=== PATIENT | female | born 1965 | race Caucasian/White ===

== ENCOUNTER → 2022-08-23 | Outpatient (CLI) | payer BC, OTHER ==
[2022-08-23 13:13] VITALS: BP 124/74; PULSE 82; RESP 17; TEMP 97.9
--- NOTE | 2022-08-23 13:55 | P.GSHP ---
History of Present Illness H&P Date: 08/23/22 Chief Complaint: lump right breast/ right breast stage I invasive ductal cancer 2016 Shira is a 57-year-old white female who is seen in consultation for Dr. Stearns regarding a painful nodule in the right breast. Of significance is the fact that she underwent a right breast lumpectomy and radiation therapy in 2016. She had a T1 cN0 M0 stage I ER/OH positive HER-2/carol negative right-sided breast cancer diagnosed in [id number]. She completed adjuvant radiation therapy to the right breast in 2517. The patient was started on arrimadex which she did not tolerate and she is currently on Aromasin which was changed to Femora which she stoped after 5 years. Her last bilateral mammogram was approximately 1 year ago. She did have a right-sided mammogram performed on June 2022 which revealed architectural distortion this was felt to be category 0 incomplete and an ultrasound of the right breast was performed on 1029. This revealed probably simple cyst in the area of palpable abnormality. This was felt to be probably benign BIRADS 3 and repeat ultrasound in 6 months was recommended. She additionally had a left breast ultrasound performed on 12121010. This revealed a 5 x 2 mm soft tissue nodule at 12:00. This was felt to be probably benign and annual screening was recommended. The patient did not bring her films. She had a Pet scan on 02-02-21 which was negative. The patient felt a lump in her right breast lumpectomy site in the beginning of June. It is increasing in size. It is tender. She is not complaining of any other lumps masses or nodules of concern in either breast. The patient thinks a "biofiller" was left at the lumpectomy site. The patient feels at this time does not feel like the biofilm or. She is not complaining of any recent trauma or infection in her breast. She is not complaining of any skin changes or nipple discharge. She has not had any other surgery on her breast. Patient had BRCA testing done and this was negative. Caffiene: 1 cup/day nicotine: none chocolate: occasional BCP: 10 years 39 to 49 for uterine fiborids Family History: aunt maternal: uterine cancer paternal aunt: breast cancer Hormonal History: menarche: 13 M1, breast fed: yes, age at first : 29 menopause: hysterectomy and removed both ovaries; about 53 no cancer done for fibroids hormones: none BCP: as above Surgical History: right breast lumpectomy torn meniscus Total abdominal hysterectomy Medical History: neuropathy (seen at [facility], ? eitology) asthma Social History: smoke: none alcohol: monthly wine drugs: none - Constitutional Constitutional: Denies chills, Denies fever - EENT Eyes: bilateral blurred vision, denies pain Ears: deny: decreased hearing, tinnitus Ears, nose, mouth and throat: Denies headache, Denies sore throat - Breasts Breasts: bilateral: as per HPI - Cardiovascular Cardiovascular: Denies chest pain, Denies shortness of breath - Respiratory Comment: asthma Respiratory: Denies cough, Denies 7 - Gastrointestinal Comment: reflux - Genitourinary (Female) Comment: UTI this year Genitourinary: Denies dysuria, Denies hematuria - Menstruation Menstruation: Reports post hysterectomy - Musculoskeletal Musculoskeletal: Reports myalgias - Integumentary Integumentary: Reports pruritus - Neurological Neurological: Reports as per HPI - Psychiatric Psychiatric: Reports anxiety, Denies depression - Endocrine Endocrine: Denies fatigue, Denies weight change - Hematologic/Lymphatic Comment: none - Allergic/Immunologic Allergic/Immunologic: Reports seasonal allergies Past Medical History Past Medical History: Asthma, Cancer, GERD/Reflux Additional Past Medical History / Comment(s): BREAST CA 2017, History of Any Multi-Drug Resistant Organisms: None Reported Past Surgical History: Section, Hysterectomy, Orthopedic Surgery Additional Past Surgical History / Comment(s): LEFT HAND TWICE, RIGHT HAND, LEFT KNEE, HYSTERECTOMY 2018 Past Anesthesia/Blood Transfusion Reactions: No Reported Reaction Additional Past Anesthesia/Blood Transfusion Reaction / Comment(s): PT WAKES UP IN PAIN Past Psychological History: Depression Smoking Status: Never smoker Past Alcohol Use History: Occasional Past Drug Use History: None Reported Medications and Allergies Home Medications Medication Instructions Recorded Confirmed Type Albuterol Inhaler [Ventolin Hfa 90 mcg INHALATION DIRECTED PRN 08/23/22 08/23/22 History Inhaler] DULoxetine HCL [Cymbalta] 20 mg PO DAILY 08/23/22 08/23/22 History Gabapentin 600 mg PO DAILY 08/23/22 08/23/22 History Mometasone/Formoterol [Dulera 200 200 mcg INHALATION DIRECTED PRN 08/23/22 08/23/22 History Mcg-5 Mcg Inhaler] Montelukast [Singulair] 10 mg PO DAILY 08/23/22 08/23/22 History Omeprazole [PriLOSEC] 20 mg PO DAILY 08/23/22 08/23/22 History Allergies Allergy/AdvReac Type Severity Reaction Status Date / Time codeine Allergy Nausea & Unverified 08/23/22 13:03 Vomiting Surgical - Exam Vital Signs Temp Pulse Resp BP Pulse Ox 97.9 F 82 17 124/74 100 08/23/22 13:07 08/23/22 13:07 08/23/22 13:07 08/23/22 13:07 08/23/22 13:07 BMI: 30.9 - General no distress - Eyes normal ocular movement - Neck trachea midline - Respiratory normal respiratory effort, clear to auscultation - Cardiovascular Rhythm: regular Heart Sounds: normal: S1, S2 - Abdomen Abdomen: soft, non tender, no guarding, no rigid, no rebound - Integumentary normal turgor - Neurologic no disoriented, no combative - Musculoskeletal normal gait, normal posture - Psychiatric oriented to time, oriented to person, oriented to place, speech is normal, memory intact Breast Exam: BRA: 44D inspection: well healed scar right breast bilateral grade 2 ptosis Palpation: Right breast: Multi positional exam fibrocystic changes, at the lumpectomy site there is a palpable fullness which I believe represents the biozorb which has not completely dissolved at this time Right axilla: No adenopathy of concern left breast: Multiple positional exam fibrocystic changes or dominant masses or nodules of concern left axilla: no dominant masses or nodules of concern Results Mammogram and ultrasound reports of the right breast from [id number] for the right mammogram, 1030 122 right ultrasound reviewed and recommendation is repeat right breast ultrasound in 6 months Ultrasound of the left breast 1213 gastric 22 reviewed felt to be benign BIRADS 2 but no recent left breast mammogram report is available Pathology is taken from patient oncology no and this was a T1 cc and 0 M0 ER/OH positive HER-2/carol negative stage IA invasive ductal right breast cancer Assessment and Plan Assessment: Impression: Tender nodularity right breast at lumpectomy site Mammogram and ultrasound films are not available to me at this time although reports are reviewed with the exception of the left breast mammogram report which was not available Pathology report not available Plan: Suspect that the tender nodularity in the right breast is related to a BioSorb placement which has not completely resorbed Obtained pathology report Obtain operative report Obtain the radiographs from both breast to personally review At this time I believe that the tenderness and the nodularity or most likely related to an completely resorbed BioSorb. However the above records have been requested. Patient has stopped her hormone receptor donna and has not seen a medical oncologist at this time, I would suggest that she should follow with medical oncology. At this time there is no clinical evidence for recurrent breast cancer. CC: Dr. Stearns
== END ==
LOC: WWCWWP 12:56
PROVIDERS: ATTEND Surgery
DX: C50.911 Malignant neoplasm of unspecified site of right female breast (principal); J45.909 Unspecified asthma, uncomplicated; K21.9 Gastro-esophageal reflux disease without esophagitis; Z79.51 Long term (current) use of inhaled steroids; Z88.5 Allergy status to narcotic agent

== ENCOUNTER 2022-09-25 09:01 | Day surgery (SDC) | payer BC, OTHER ==
[~2022-09-25 09:01] MED LIST: LACTATED RINGERS 1,000 ML IV SCH; LIDOCAINE 1% (10MG/ML) FOR IV START INTRADERMA PRN
[2022-09-25 10:00] VITALS: TEMP 97
[2022-09-25] MEDS ORDERED: PROPOFOL 10 MG/ML 20 ML VIAL IV ONE (10:17)
[2022-09-25] MEDS ORDERED: LIDOCAINE 2% INJ 20 MG/ML (2 ML VIAL) ONE (10:17)
--- NOTE | 2022-09-25 10:29 | P.PCN ---
Date of Procedure: 09/25/22 Procedure(s) Performed: BRIEF HISTORY: Patient is a 57-year-old, pleasant, white female scheduled for an upper endoscopy as a part of evaluation of . globus sensation her throat area associated with cramping and constant clearing of her throat for the last 7 years duration. She was diagnosed with GERD and has been on omeprazole in the past with some relief. Lately has been having worsening symptoms and hence was started on Nexium 40 mg daily and help.with no She is scheduled for an upper endoscopy to evaluate further PROCEDURE PERFORMED: Esophagogastroduodenoscopy with biopsy . PREOPERATIVE DIAGNOSIS: Chronic hoarseness/throat pain/throat clearing and history of GERD IV sedation per anesthesia. PROCEDURE: After informed consent was obtained, the patient was brought into the endoscopy unit. IV sedation was administered by Anesthesia under continuous monitoring. Initially the Olympus GIF-140 video endoscope was inserted into the mouth. Esophagus intubated without any difficulty. It was gradually advanced into the stomach and duodenum and carefully examined. The bulb and the second part of the duodenum appeared normal. The scope at this time was withdrawn to the stomach, adequately insufflated with air, and upon careful examination, mucosa of the antrum, had patchy areas of erythema and biopsies were done from this area. Mucosa of the body, cardia and the fundus appeared normal. The scope was then withdrawn into the esophagus. The GE junction was located at 41 cm from the incisors. The esophagus appeared normal. There were no erosions or ulcerations seen. Multiple biopsies were done from the distal esophagus to evaluate for eosinophilic esophagitis and the patient tolerated the procedure well. IMPRESSION: 1. Mild antral gastritis. 2. Normal-appearing esophagus with no evidence of esophagitis or esophageal stricture, status post multiple biopsies to rule out eosinophilic esophagitis. RECOMMENDATIONS: The findings of this examination were discussed with the patient as well as a family. She was advised to follow with the biopsy results. In the meantime she will continue with Nexium 40 mg daily and will start her on Carafate 1 g 4 times daily..She will be seen in office in 3-4 weeks.
[2022-09-25 11:00] VITALS: BP 151/86; PULSE 82; RESP 16
== END 2022-09-25 11:25 | disposition home or self-care (01) ==
LOC: ORWHC2ENDO 09:01
PROVIDERS: ATTEND Internal Medicine Gastroenterology
DX: K29.50 Unspecified chronic gastritis without bleeding (principal); J45.909 Unspecified asthma, uncomplicated; K21.00 Gastro-esophageal reflux disease with esophagitis, without bleeding; G62.9 Polyneuropathy, unspecified; Z88.5 Allergy status to narcotic agent; Z79.899 Other long term (current) drug therapy; Z79.51 Long term (current) use of inhaled steroids
CPT/HCPCS: 43239; J2704; J2001; 88305

== ENCOUNTER → 2022-10-03 | Outpatient (CLI) | payer BC, OTHER ==
[2022-10-03 14:04] VITALS: BP 151/97; PULSE 100; RESP 17; TEMP 98.9
--- NOTE | 2022-10-03 14:30 | P.PN ---
Subjective Progress Note Date: 10/03/22 Principal diagnosis: Pain right breast at lumpectomy site Shira is a 57-year-old white female who was seen on [id number] Re: A lump in her right breast with some pain at that site. She has a history of a right breast stage I invasive ductal carcinoma treated with a lumpectomy in 2017. She subsequently underwent radiation therapy. She has been treated with hormonal therapy which she is presently taking. She has most recently a left breast mammogram and ultrasound the mammogram was on 824175 and the ultrasound was on 858429. This was felt to be benign BIRADS 2. The right breast was evaluated with a mammogram on 929769 and an ultrasound on 009774 for which was felt to be probably benign short interval follow-up in 6 months recommended. Pathology report from her surgical intervention is not available [place] [address] states that the tumor was a 11 mm, and node negative. This was ER/MI positive and HER-2 negative. She did not have any chemotherapy. She was started on tamoxifen and then changed to Revlimid brianna t's. She stopped the medication due to myalgias and arthralgias. Objective - Vital Signs Vital signs: Vital Signs Temp 98.9 F 10/03/22 14:02 Pulse 100 10/03/22 14:02 Resp 17 10/03/22 14:02 BP 151/97 10/03/22 14:02 Pulse Ox 94 L 10/03/22 14:02 FiO2 Intake & Output 10/02/22 10/03/22 10/03/22 18:59 06:59 18:59 Weight 97.522 kg - Constitutional General appearance: Present: cooperative - EENT Eyes: Present: EOMI ENT: Present: hearing grossly normal - Neck Neck: Present: normal ROM - Respiratory Respiratory: bilateral: CTA - Cardiovascular Rhythm: regular Heart sounds: normal: S1, S2 - Gastrointestinal General gastrointestinal: Present: soft - Integumentary Integumentary: Present: normal turgor - Psychiatric Psychiatric: Present: A&O x's 3, appropriate affect, intact judgment & insight - Additional findings Additional findings: Breast examination: Bra: 44D Inspection: Well-healed scar right breast bilateral grade 2 ptosis Palpation: Right breast: Multiple positional exam fibrocystic changes, at the lumpectomy site there is a palpable fullness which I believe represents a BioSorb which was not completely dissolved Right axilla: No adenopathy of concern Left breast: Multiple positional exam fibrocystic changes no dominant masses or nodules of concern Left axilla: No dominant masses or nodules of concern Assessment and Plan Assessment: Impression: Patient status post right breast lumpectomy for stage IA invasive ductal car cinoma no evidence of recurrent disease Pain and fullness at the lumpectomy site suspect he may be a retained BioSorb material Plan: Obtain the actual x-rays from [facility] of the right breast mammogram and ultrasound Obtain operative report from the right breast lumpectomy from [facility] 2016 Repeat right breast mammogram December 2022 with appointment at that time Cc: Dr. Stearns
== END ==
LOC: WWCWWP 13:54
PROVIDERS: ATTEND Surgery
DX: Z85.3 Personal history of malignant neoplasm of breast (principal); Z88.5 Allergy status to narcotic agent

== ENCOUNTER 2023-01-21 06:50 | Day surgery (SDC) | payer BC, OTHER ==
[~2023-01-21 06:50] MED LIST changes: +HEPARIN SODIUM,PORCINE/PF 5,000 UNIT/0.5 ML SYRINGE SQ PRN; -LACTATED RINGERS 1,000 ML IV SCH; -LIDOCAINE 1% (10MG/ML) FOR IV START INTRADERMA PRN; +Pre Op ABX Message 1 EACH MISC MISCELLANE ONE
[2023-01-21] MEDS ORDERED: HYDROmorphone 0.5 MG/0.5 ML SYRINGE IVP PRN (07:06)
[2023-01-21] MEDS ORDERED: ONDANSETRON 4 MG/2 ML VIAL IVP ONE (07:06)
[2023-01-21] MEDS ORDERED: DEXAMETHASONE SOD PHOSPHATE 4 MG/ML 1 ML VIAL IV ONE (07:06)
[2023-01-21] MEDS ORDERED: LIDOCAINE 1% (10MG/ML) FOR IV START INTRADERMA PRN (07:06)
[2023-01-21] MEDS ORDERED: MIDAZOLAM 2 MG/2 ML VIAL IV PRN (07:06)
[2023-01-21] MEDS ORDERED: LACTATED RINGERS 1,000 ML IV SCH (07:06)
[2023-01-21] MEDS ORDERED: ALPRAZolam 0.5 MG TAB ONE (07:41)
[2023-01-21] MEDS ORDERED: HYDROCORTISONE SUCCINATE 100 MG/2 ML VIAL IV ONE (07:50)
[2023-01-21] MEDS ORDERED: LIDOCAINE 1% (10MG/ML) FOR IV START SQ ONE (08:30)
[2023-01-21] MEDS ORDERED: PROPOFOL 10 MG/ML 20 ML VIAL IV ONE (09:04)
[2023-01-21] MEDS ORDERED: KETOROLAC 15 MG/ML 1 ML VIAL ONE (09:04)
[2023-01-21] MEDS ORDERED: PHENYLEPHRINE-0.9% NACL SYG 1,000 MCG/10 ML SYRINGE ONE (09:04)
[2023-01-21] MEDS ORDERED: fentaNYL (PF) 50 MCG/ML 2 ML AMP ONE (09:04)
[2023-01-21] MEDS ORDERED: SUCCINYLCHOLINE CHLORIDE 200 MG/10 ML VIAL IV ONE (09:04)
[2023-01-21] MEDS ORDERED: LIDOCAINE 2% INJ 20 MG/ML (2 ML VIAL) ONE (09:04)
[2023-01-21] MEDS ORDERED: MIDAZOLAM 2 MG/2 ML VIAL ONE (09:04)
[2023-01-21] MEDS ORDERED: SODIUM CHLORIDE 0.9% 100 ML BAG ONE (09:09)
[2023-01-21] MEDS ORDERED: ceFAZolin 1,000 MG VIAL ONE (09:09)
[2023-01-21] MEDS ORDERED: LIDOCAINE 0.5% (PF) 5 MG/ML (50 ML SDV) SQ ONE (09:49)
--- NOTE | 2023-01-21 09:52 | P.OP ---
Date of Procedure: 01/21/23 Preoperative Diagnosis: Foreign body right breast Postoperative Diagnosis: Same Procedure(s) Performed: needle localization excisional lumpectomy right breast Anesthesia: FINNA Surgeon: Ro Nixon Estimated Blood Loss (ml): 5 IV fluids (ml): 200 Pathology: other (Breast tissue) Condition: stable Disposition: same day Indications for Procedure: Pain related to residual Biozorb right breast Operative Findings: forgein body right breast Description of Procedure: The patient is a 57-year-old white female status post right breast lumpectomy and a Biozorb placed several years ago. The Biozorb failed to resorb with the patient having persistent pain at this site. She wishes this to be excised. The patient underwent Localization of this area preoperatively in the radiology department. Following this she was brought to the operating room. Following induction of anesthesia the right breast was prepped and draped in a sterile fashion. An incision was made and carried down to the shaft of the needle. Surrounding tissue was excised. After we were assured that hemostasis was attained the wound was well irrigated. The specimen was painted for orientation. Titanium clips were pl aced. The deep tissues were closed using 3-0 Vicryl suture. This was followed by closure of the subcutaneous tissue with 3-0 Vicryl suture. The skin was closed using 4-0 Monocryl. The patient tolerated the procedure in stable condition.
[2023-01-21 10:08] VITALS: TEMP 97
[2023-01-21 11:17] VITALS: RESP 16
[2023-01-21] MEDS ORDERED: HYDROcodone/APAP 5-325MG 1 EACH TAB ONE (11:29)
[2023-01-21 11:38] VITALS: BP 135/84; PULSE 76
== END 2023-01-21 12:11 | disposition home or self-care (01) ==
LOC: OR 06:50
PROVIDERS: ATTEND Surgery
DX: S20.151A Superficial foreign body of breast, right breast, initial encounter (principal); J45.909 Unspecified asthma, uncomplicated; G62.9 Polyneuropathy, unspecified; Z88.5 Allergy status to narcotic agent; Z79.899 Other long term (current) drug therapy; Z98.891 History of uterine scar from previous surgery; Z98.890 Other specified postprocedural states
CPT/HCPCS: 76098; 19281; C1819; J2250; J0330; J1100; J1720; J2405; J0690; J2001 ×2; J3010; J1885; J2370; J2704; 88307

== ENCOUNTER → 2023-01-30 | Outpatient (CLI) | payer BC, OTHER ==
[2023-01-30 16:08] VITALS: BP 123/77; PULSE 73; RESP 16; TEMP 97.8
--- NOTE | 2023-01-30 16:09 | P.PN ---
Progress Note - Text Progress Note Date: 01/30/23 Shira is a 57 year old white female status post excision of lesion right breast on 01-21-23. She did have some nausea post-procedure but is doing well at this time. Pathology revealed benign breast with nodular calcified fat necrosis and scar. She did not tolerate hormone therapy. She did not have chemotherapy. She did complete radiation therapy. Examination: Lungs: Clear Heart: Regular rate and rhythm Incision: Clean and dry Plan: Repeat right breast mammogram in 6 months with position exam at that time continue to follow with DR. Montano CC: DR. Stearns
== END ==
LOC: WWCWWP 15:40
PROVIDERS: ATTEND Surgery
DX: Z85.3 Personal history of malignant neoplasm of breast (principal); Z88.5 Allergy status to narcotic agent

== ENCOUNTER → 2024-01-23 | Outpatient (CLI) | payer BC, OTHER ==
--- NOTE | 2024-01-23 12:28 | P.PN ---
Subjective Progress Note Date: 01/23/24 01/10/23 right breast stage I invasive ductal cancer 2017 Pain right breast at lumpectomy site Shira is a 57-year-old white female who was seen on 170939 Re: A lump in her right breast with some pain at that site. She has a history of a right breast stage I invasive ductal carcinoma treated with a lumpectomy in 2017. She subsequently underwent radiation therapy. She has been treated with hormonal therapy which she is presently taking. She has most recently a left breast mammogram and ultrasound the mammogram was on 044142 and the ultrasound was on 856632. This was felt to be benign BIRADS 2. The right breast was evaluated with a mammogram on 117294 and an ultrasound on 246140 for which was felt to be probably benign short interval follow-up in 6 months recommended. Pathology report from her surgical intervention is not available [place] [address] states that the tumor was a 11 mm, and node negative. This was ER/DE positive and HER-2 negative. She did not have any chemotherapy. She was started on tamoxifen and then changed Aromisin, and then arimidex the medication was stopped due to myalgias and arthralgias. She had a right breast mammogram on 10-24-22 which was BIRAD 0 an ultrasound was recommended. The patient had an ultrasound performed which confirms the BioSorb. The biozorb was also well seen on her right breast mammogram. This is at the area of the tenderness. Recommendation after this was repeat right breast mammogram in 9 months. Patient's most recent left breast mammogram was in July 2022 she also had an ultrasound related to that which was felt to be benign BIRADS 2 Patient's most recent right breast mammogram with an ultrasound was in October 2022 and repeat evaluation in 9 months was recommended. She continues to have the discomfort for which she was initially seen in the right breast. 01-23-24 The patient on 01-21-2023 underwent resection of residual BioSorb in the right breast. Medical oncology note Dr. Crawford 04-08-2023 reviewed The breast cancer index was being reviewed to determine whether or not the patient should continue on her aromatase inhibitor; she stopped this about three years ago 01-21-2023 underwent resection of the prior biopsy cavity which showed benign breast tissue and fat necrosis The patient continues to feel nodularity in the site where the prior lumpectomy/removal of the scar tissue was performed. There are no new changes however. She is presently off all her medications. She is using natural holistic wellness plan. Caffeine: One cup per day Nicotine: Negative Chocolate: Occasional control pills: 10 years from [age] for uterine fibroids Family history: And maternal uterine cancer Paternal aunt: Breast cancer Hormonal history: Menarche: 13 M1, breast-fed: Yes, age of first : 29 Menopause: Hysterectomy removed both ovaries, about 53 are done for fibroids Hormones: Negative control pills: As above Surgical history: Right breast lumpectomy Torn meniscus Total abdominal hysterectomy Medical history: Neuropathy seen at [facility] question etiology Asthma Social history: Smoke: Negative Alcohol: Monthly Y Drugs: Negative Review of systems: Constitutional: Negative HEENT: Negative Breasts: As above Cardiovascular: Negative Procedure: Asthma GI: Reflux : UTI in the past Status post hysterectomy Neurology: Neuropathy ALLERGIES: Seasonal ALLERGIES Objective - Constitutional General appearance: Present: cooperative - EENT Eyes: Present: EOMI ENT: Present: hearing grossly normal - Neck Neck: Present: normal ROM - Respiratory Respiratory: bilateral: CTA - Cardiovascular Rhythm: regular Heart sounds: normal: S1, S2 - Integumentary Integumentary: Present: normal turgor - Musculoskeletal Musculoskeletal: Present: gait normal - Psychiatric Psychiatric: Present: A&O x's 3, appropriate affect, intact judgment & insight - Additional findings Additional findings: Breast examination: Bra: 44D Inspection: Well-healed scar right breast bilateral grade 2 ptosis, breast smaller than left breast, fungal infection under both breast Palpation: Right breast: Multiple positional exam fibrocystic changes, at prior lumpectomy site which is in the upper inner quadrant of the breast this is consistent with postoperative changes Right axilla: No adenopathy of concern Left breast: Multiple positional exam fibrocystic changes no dominant masses or nodules of concern Left axilla: No dominant masses or nodules of concern Assessment and Plan Assessment: Impression: Patient status post right breast lumpectomy for stage IA invasive ductal carcinoma no evidence of recurrent disease Pain and fullness at the lumpectomy site, no evidence or recurrent cancer Neuropathy seen at [facility] question etiology Asthma possible fibromyalgia now off all medication bilateral mammogram and right breast ultrasound/ repeat right breast ultrasound and mammogram in 3 months Plan: Patient doing well right breast mammogram and ultrsaound in 3 months, follow up at that time nystatin as needed Cc: Dr. Stearns
[2024-01-23 13:23] VITALS: BP 148/87; PULSE 90; RESP 17; TEMP 98.1
== END ==
LOC: WWCWWP 10:55
PROVIDERS: ATTEND Surgery
DX: G62.9 Polyneuropathy, unspecified (principal); J45.909 Unspecified asthma, uncomplicated; N64.4 Mastodynia; G89.18 Other acute postprocedural pain; Z17.0 Estrogen receptor positive status [ER+]; Z80.3 Family history of malignant neoplasm of breast; Z92.3 Personal history of irradiation; Z98.890 Other specified postprocedural states; Z88.5 Allergy status to narcotic agent

== ENCOUNTER → 2024-01-23 | Outpatient (CLI) | payer BC, OTHER ==
--- NOTE | 2024-01-23 12:04 | USB ---
Reason for Exam: Additional evaluation requested from prior study. Patient History: Left ovary removed at age 53. Right ovary removed at age 53. Hysterectomy at age 53. Patient has history of breast feeding. 01/21/2023, Benign MG pre op needle loc RT on the right side. 2017, Lumpectomy on the Right side. 2017, Radiation Therapy on the right side. Maternal aunt had ovarian cancer. Paternal aunt had breast cancer. Risk Values: Sherin 5 year model risk: 1.1%. NCI Lifetime model risk: 5.9%. Technique: Method: Targeted. Prior Study Comparison: 08/07/2022 Bilateral MG 3D screening mammo w/cad, [facility]. 10/24/2022 Right MG 3D diag mammo w/cad RT, [facility]. Findings: The upper section of the breast of the right breast, the axilla of the right breast and the retroareolar of the right breast were scanned. Targeted ultrasound superior aspect of the right breast from 9:00 to 3:00 including scanning of the subareolar region and axilla. At the 2:00 position, 4 cm from the nipple, there is a complex collection measuring 3.7 x 3.6 x 2.3 cm. Internal soft tissue and fluid components are present. No internal vascularity. No other solid or cystic lesion or axillary lymphadenopathy. Overall Assessment: Probably benign, BI-RAD 3 Management: Diagnostic Mammogram of the right breast in 3 months. Diagnostic Breast Ultrasound of the right breast in 3 months. For heterogeneous collection at the excision site, suspected combination of clumped up scarring, chronic hematoma, and seroma. A clinical breast exam by your physician is recommended on an annual basis and results should be correlated with mammographic findings. This exam should not preclude additional follow-up of suspicious palpable abnormalities. Results were given to the patient verbally at the time of exam. Electronically signed and approved by: Lui Lopez M.D. Radiologist
--- NOTE | 2024-01-23 20:31 | MM ---
Reason for Exam: Follow-up at short interval from prior study. Last mammogram was performed 1 year(s) and 6 month(s) ago. Patient History: Menarche at age 13. First Full-Term at age 18. Left ovary removed at age 53. Right ovary removed at age 53. Hysterectomy at age 53. Postmenopausal. Patient has history of breast feeding. 01/21/2023, Benign MG pre op needle loc RT on the right side. 2016, Lumpectomy on the Right side. 2017, Radiation Therapy on the right side. Maternal aunt had ovarian cancer. Paternal aunt had breast cancer. Risk Values: Sherin 5 year model risk: 1.1%. NCI Lifetime model risk: 5.9%. Tissue Density: There are scattered areas of fibroglandular density. Findings: Analyzed By CAD. After resection of patient's bibasilar device, interval formation of a 4.2 cm mass 12 to 1:00 position middle depth. Postexcisional changes are suspected. Further ultrasound evaluation is recommended. Otherwise, no significant change. Overall Assessment: Incomplete: need additional imaging evaluation, BI-RAD 0 Management: Diagnostic Breast Ultrasound of the right breast. Electronically signed and approved by: Lui Lopez M.D. Radiologist
== END | disposition home or self-care (01) ==
LOC: RADMAMWWP 10:52
PROVIDERS: ATTEND Surgery
DX: R92.323 Mammographic fibroglandular density, bilateral breasts (principal); Z78.0 Asymptomatic menopausal state; Z80.3 Family history of malignant neoplasm of breast
CPT/HCPCS: 77062; 77066

== ENCOUNTER → 2024-06-17 | Outpatient (CLI) | payer OTHER ==
--- NOTE | 2024-06-17 08:16 | MM ---
Reason for Exam: Follow-up at short interval from prior study. Last screening mammogram was performed 5 month(s) ago. Patient History: Menarche at age 13. First Full-Term at age 18. Left ovary removed at age 53. Right ovary removed at age 53. Hysterectomy at age 53. Postmenopausal. Patient has history of breast feeding. 01/21/2023, Benign MG pre op needle loc RT on the right side. 2017, Lumpectomy on the Right side. 2017, Radiation Therapy on the right side. Maternal aunt had ovarian cancer. Paternal aunt had breast cancer. Risk Values: Sherin 5 year model risk: 1.1%. NCI Lifetime model risk: 5.7%. Prior Study Comparison: 08/07/2022 Bilateral MG 3D screening mammo w/cad, [facility]. 10/24/2022 Right MG 3D diag mammo w/cad RT, [facility]. 01/23/2024 Bilateral MG 3D diag mammo w/cad [facility], [facility]. Tissue Density: Right: There are scattered areas of fibroglandular density. Findings: Analyzed By CAD. Stable area of increased density at the prior lumpectomy site upper inner right breast. Ultrasound recommended as follow-up. No new masses seen. No new areas of distortion or suspicious microcalcifications. Overall Assessment: Incomplete: need additional imaging evaluation, BI-RAD 0 Management: Diagnostic Breast Ultrasound of the right breast. . Results were given to the patient verbally at the time of exam. Patient should continue monthly self-breast exams. A clinical breast exam by your physician is recommended on an annual basis. This exam should not preclude additional follow-up of suspicious palpable abnormalities. Note on Sherin scores and lifetime risk: 1. A Sherin score greater than 3% is considered moderate risk. If this is the case, consider specialist referral to assess eligibility for a risk reducing agent. 2. If overall lifetime risk for the development of breast cancer is 20% or higher, the patient may qualify for future screening with alternating mammogram and breast MRI. [facility], , 06/17/2024 8:13 AM. Electronically signed and approved by: Willie Monroe M.D. Radiologis
--- NOTE | 2024-06-17 08:38 | USB ---
Reason for Exam: Clinical finding. Patient History: Menarche at age 13. First Full-Term at age 18. Left ovary removed at age 53. Right ovary removed at age 53. Hysterectomy at age 53. Postmenopausal. Patient has history of breast feeding. 01/21/2023, Benign MG pre op needle loc RT on the right side. 2017, Lumpectomy on the Right side. 2017, Radiation Therapy on the right side. Maternal aunt had ovarian cancer. Paternal aunt had breast cancer. Risk Values: Sherin 5 year model risk: 1.1%. NCI Lifetime model risk: 5.7%. Technique: Method: Targeted. Doppler: Color. Patient Position: Supine. Prior Study Comparison: 08/07/2022 Bilateral MG 3D screening mammo w/cad, [facility]. 10/24/2022 Right MG 3D diag mammo w/cad RT, [facility]. 01/23/2024 Bilateral MG 3D diag mammo w/cad [facility], [facility]. Findings: The area of palpable concern of the right breast, the axilla of the right breast and the retroareolar of the right breast were scanned. Again noted at the site of prior lumpectomy at the right 2:00 position 9 cm from the nipple is a mixed partially cystic partially solid collection measuring 2.9 x 3.7 x 2.5 cm essentially unchanged from prior examination. No new masses seen within the [id number]. Overall Assessment: Probably benign, BI-RAD 3 Management: Diagnostic Breast Ultrasound of the right breast in 7 months. A clinical breast exam by your physician is recommended on an annual basis and results should be correlated with mammographic findings. This exam should not preclude additional follow-up of suspicious palpable abnormalities. Results were given to the patient verbally at the time of exam. [facility], , 06/17/2024 8:35 AM. Electronically signed and approved by: Willie Monroe M.D. Radiologis
== END | disposition home or self-care (01) ==
LOC: RADMAMWWP 07:54
PROVIDERS: ATTEND Surgery
CPT/HCPCS: 77061; 77065

== ENCOUNTER → 2024-06-17 | Outpatient (CLI) | payer OTHER ==
[2024-06-17 08:43] VITALS: BP 145/92; PULSE 89; RESP 16; TEMP 98.2
--- NOTE | 2024-06-17 09:46 | P.PN ---
Subjective Progress Note Date: 06/17/24 Principal diagnosis: [id number]- invasive ductal right breast cancer 2016 Shira is a 59-year-old white female who was seen on [id number] Re: A lump in her right breast with some pain at that site. She has a history of a right breast stage I invasive ductal carcinoma treated with a lumpectomy in 2016. She subsequently underwent radiation therapy. She had been treated with hormone therapy. Pathology report from her surgical intervention is not available [place] [id number] states that the tumor was a 11 mm, and node negative. This was ER/UT positive and HER-2 negative. She did not have any chemotherapy. She was started on tamoxifen and then changed Aromisin, and then arimidex the medication was stopped due to myalgias and arthralgias. She had a right breast mammogram on 10-24-22 which was BIRAD 0 an ultrasound was recommended. The patient had an ultrasound performed which confirmed residula BioSorb at the site of her lumpectomy. The biozorb was also well seen on her right breast mammogram. This corresponded to an area of tenderness in the breast. Patient's most recent left breast mammogram was in July 2022 she also had an ultrasound related to that which was felt to be benign BIRADS 2 Patient's most recent right breast mammogram with an ultrasound was in October 2022 and repeat evaluation in 9 months was recommended. She continues to have the discomfort for which she was initially seen in the right breast. The patient on 01-21-2023 underwent resection of residual BioSorb in the right breast. 01-21-2023 underwent resection of the prior biopsy cavity which showed benign breast tissue and fat necrosis Medical oncology note Dr. Montano 05-13-24 reviewed; breast cancer index testing was done which showed benefit from extended hormone therapy with risk of recurrence decreased from 9.1% to 3.8%; she had tried annestrazole, exmestane, and Femora which she stopped in mid 2021; right breast mammogram and ultrasound done on 06-17-24 BIRAD 3 personally reviewed and interpreted; mixed partially cystic/solid collection measuring 2.9 x 3.7 cm at old lumpectomy site last left breast mammogram 01-23-24 no lesions of concern noted on the left side She is taking Femara since January of 2024, she is complaining of joint pain. It was better off the Femora. She is now complaining of swelling of her feet and decreased sensation on the dorsum of her feet. She has been getting steroid shots related to this. [facility] sees Dr. Hilliard from orthopedic surgery. The patient continues to feel nodularity in the site where the prior lumpectomy/removal of the scar tissue was performed. There are no new changes however. She is presently off all her medications. She is using natural holistic wellness plan. Caffeine: One cup per day Nicotine: Negative Chocolate: Occasional control pills: 10 years from [age] for uterine fibroids Family history: And maternal uterine cancer Paternal aunt: Breast cancer Hormonal history: Menarche: 13 M1, breast-fed: Yes, age of first : 29 Menopause: Hysterectomy removed both ovaries, about 53 are done for fibroids Hormones: Negative control pills: As above Surgical history: Right breast lumpectomy Torn meniscus left knee Total abdominal hysterectomy Medical history: Neuropathy was seen at [facility] question etiology Asthma Social history: Smoke: Negative Alcohol: Monthly Y Drugs: Negative Review of systems: Constitutional: Negative HEENT: Negative Breasts: As above Cardiovascular: Negative Procedure: Asthma GI: Reflux : UTI in the past Status post hysterectomy Neurology: Neuropathy ALLERGIES: Seasonal ALLERGIES Objective - Vital Signs Vital signs: Vital Signs Temp 98.2 F 06/17/24 08:41 Pulse 89 06/17/24 08:41 Resp 16 06/17/24 08:41 BP 145/92 06/17/24 08:41 Pulse Ox 100 06/17/24 08:41 FiO2 Intake & Output 06/16/24 06/17/24 06/17/24 18:59 06:59 18:59 Weight 99.79 kg - Constitutional General appearance: Present: cooperative - EENT Eyes: Present: EOMI ENT: Present: hearing grossly normal - Neck Neck: Present: normal ROM - Respiratory Respiratory: bilateral: CTA - Cardiovascular Rhythm: regular Heart sounds: normal: S1, S2 - Integumentary Integumentary: Present: normal turgor - Musculoskeletal Musculoskeletal: Present: gait normal - Psychiatric Psychiatric: Present: A&O x's 3, appropriate affect, intact judgment & insight - Additional findings Additional findings: Breast examination: Bra: 44D Inspection: Well-healed scar right breast bilateral grade 2 ptosis, right breast smaller than left breast Palpation: Right breast: Multi positional exam fibrocystic changes, at prior lumpectomy site which is in the upper inner quadrant of the breast this is consistent with postoperative changes Right axilla: No adenopathy of concern Left breast: Multi positional exam fibrocystic changes no dominant masses or nodules of concern Left axilla: No dominant masses or nodules of concern Assessment and Plan Assessment: Impression: Patient status post right breast lumpectomy for stage IA invasive ductal carcinoma no evidence of recurrent disease Pain and fullness at the lumpectomy site, no evidence of recurrent cancer Neuropathy in feet following with orthopedic surgery Asthma possible fibromyalgia taking Femara Bilateral mammogram with right breast ultrasound in January 2025 Seroma at right breast lumpectomy site No evidence of recurrent cancer Plan: Continue Femara Attempted aspiration of seroma right breast Bilateral mammogram with right breast ultrasound in January 2025 Continue to follow with orthopedic surgery regarding foot pain Continue to follow with primary care Dr. Stearns Cc: Dr. Stearns
== END ==
LOC: WWCWWP 08:32
PROVIDERS: ATTEND Surgery

== ENCOUNTER → 2025-01-17 | Outpatient (CLI) | payer OTHER ==
--- NOTE | 2025-01-17 09:13 | MM ---
Reason for Exam: Hx of breast cancer, conservation therapy. Last screening mammogram was performed 12 month(s) ago. Patient History: Menarche at age 13. First Full-Term at age 18. Left ovary removed at age 53. Right ovary removed at age 53. Hysterectomy at age 53. Postmenopausal. Patient has history of breast feeding. 01/21/2023, Benign MG pre op needle loc RT on the right side. 2017, Lumpectomy on the Right side. 2017, Radiation Therapy on the right side. Maternal aunt had ovarian cancer. Paternal aunt had breast cancer. Risk Values: Sherni 5 year model risk: 1.1%. NCI Lifetime model risk: 5.7%. Tissue Density: There are scattered areas of fibroglandular density. Findings: Analyzed By CAD. Surgical clips in the right breast with 2.9 cm focal asymmetry showed continued slight decrease in size from recent prior mammograms. No suspicious new mass or group of microcalcification in either breast. Overall Assessment: Benign, BI-RAD 2 Management: Diagnostic Mammogram of both breasts in 1 year. . Results were given to the patient verbally at the time of exam. Patient should continue monthly self-breast exams. A clinical breast exam by your physician is recommended on an annual basis. This exam should not preclude additional follow-up of suspicious palpable abnormalities. Note on Sherin scores and lifetime risk: 1. A Sherin score greater than 3% is considered moderate risk. If this is the case, consider specialist referral to assess eligibility for a risk reducing agent. 2. If overall lifetime risk for the development of breast cancer is 20% or higher, the patient may qualify for future screening with alternating mammogram and breast MRI. [facility], , 01/17/2025 9:10 AM. Electronically signed and approved by: Keaton Donis M.D.
--- NOTE | 2025-01-17 09:29 | USB ---
Reason for Exam: Clinical finding. Patient History: Menarche at age 13. First Full-Term at age 18. Left ovary removed at age 53. Right ovary removed at age 53. Hysterectomy at age 53. Postmenopausal. Patient has history of breast feeding. 01/21/2023, Benign MG pre op needle loc RT on the right side. 2016, Lumpectomy on the Right side. 2017, Radiation Therapy on the right side. Maternal aunt had ovarian cancer. Paternal aunt had breast cancer. Risk Values: Sherin 5 year model risk: 1.1%. NCI Lifetime model risk: 5.7%. Technique: Method: Targeted. Prior Study Comparison: 10/24/2022 Right MG 3D diag mammo w/cad RT, [facility]. 01/23/2024 Bilateral MG 3D diag mammo w/cad [facility], [facility]. 06/17/2024 Right MG 3D diag mammo w/cad RT, [facility]. Findings: The upper inner quadrant of the right breast, the axilla of the right breast and the retroareolar of the right breast were scanned. Targeted ultrasound. At 2:00 position 9 cm distance from nipple there is a 3.7 x 1.9 x 3.0 cm circumferential fluid collection with some internal echoes. No significant solid component on today's study. Size of the area of concern in fairly stable from prior ultrasound. No concerning new masses. No suspicious new axillary adenopathy. Overall Assessment: Benign, BI-RAD 2 Management: Diagnostic Mammogram of both breasts in 1 year. Suspect a slow resolving seroma. A clinical breast exam by your physician is recommended on an annual basis and results should be correlated with mammographic findings. This exam should not preclude additional follow-up of suspicious palpable abnormalities. Results were given to the patient verbally at the time of exam. [facility], , 01/17/2025 9:26 AM. Electronically signed and approved by: Keaton Donis M.D.
== END | disposition home or self-care (01) ==
LOC: RADMAMWWP 08:47
PROVIDERS: ATTEND Surgery
DX: R92.323 Mammographic fibroglandular density, bilateral breasts (principal); Z78.0 Asymptomatic menopausal state; Z80.3 Family history of malignant neoplasm of breast; Z85.3 Personal history of malignant neoplasm of breast
CPT/HCPCS: 77062; 77066